=== PATIENT | male | born 1945 | race Caucasian/White ===

== ENCOUNTER → 2017-02-14 | Outpatient (CLI) | payer OTHER ==
[~2017-02-14] MED LIST: ADVAIR INH; ASPIRIN81 M2 PO; CIPRO PO; CRESTOR PO; LISINOPRIL2.5 MG PO; PRAVASTATIN SOD20 MG PO; VICODIN 5/500 T1 TAB PO
--- NOTE | ~2017-02-14 | CR63 ---
[facility] A Service of [facility] & [facility] RADIOLOGY TEXT RESULTS PATIENT: MARK YIP LOCATION: [facility] : 49 UNIT #: [id number] AGE: [address]: MIRTA TAPIA APRN SEX: M ORDER DR: [id number] [facility] [address] [facility] [place], [place] [address] [id number] O MR#: [id number] Acc #: [id number] NAME: MAKR YIP : 1945 SEX: M STUDY DATE/TIME: 02/14/2017 17:14 UNIT: [facility] ROOM: STUDY DESCRIPTION: CR Chest 2 View Attending Physician: Mirta Tapia M.D. Referring Physician: Mirta Tapia M.D. Ordering Physician: Mirta Tapia M.D. Primary Care Physician: Mirta Tapia M.D. MEDICAL IMAGING REPORT This report is preliminary unless electronic signature is present EXAM Chest x-ray, 02/14/2017. INDICATIONS Shortness of air and cough today. Muscular atrophy. FINDINGS 2 views of the chest compared with 06/03/09. Lung volumes are low. Some minimal chronic scarring at the left base. The lungs are otherwise clear. No pneumothorax is seen. Cardiac and mediastinal contours are normal. IMPRESSION No acute findings in the chest. There is some mild chronic scarring at the left base and lung volumes overall are quite low. Dictated by... Ky Palma Jr., M.D. THIS IS AN ELECTRONICALLY VERIFIED REPORT Ky Palma Jr., M.D. at 02/14/2017 10:23 PM REDDY/ian TD: 02/14/2017 20:10 JOB #: [id number] MEDICAL IMAGING REPORT Page 1 of 1 COPY
== END | disposition home or self-care (01) ==
LOC: CRAD 16:49
DX: M62.50 Muscle wasting and atrophy, not elsewhere classified, unspecified site (principal); J98.4 Other disorders of lung
CPT/HCPCS: 71020